=== PATIENT | female | born 1975 | race Caucasian/White ===

== ENCOUNTER → 2017-08-31 11:22 | Outpatient (CLI) | payer OTHER, MEDICAID, SELFPAY ==
[2017-08-31 12:18] LABS: Add Manual Diff / Slide Review NO; Basophils Percent Auto 0.8 % (0-2); Eosinophils Percent Auto 1.1 % (2-4); Hematocrit 42.1 % (36-46); Hemoglobin 14.3 g/dL (12.0-16.0); Mean Corpuscular HGB Conc 33.9 % (30-36); Mean Corpuscular Hemoglobin 31.8 PG (26-34); Mean Corpuscular Volume 93.8 fL (80-100); Monocytes Percent Auto 7.5 % (3-14); Neutrophils Absolute Auto 3900 /uL (3000-5900); Neutrophils Percent Auto 63.6 % (50-75); Platelet Count 227 X10^3/uL (150-400); Red Blood Cell Count 4.49 X10^6/uL (4.0-5.2); White Blood Cell Count 6.1 X10^3/uL (4.5-11.0)
[2017-08-31 12:56] LABS: Alanine Aminotransferase 22 IU/L (9-52); Albumin 4.6 g/dL (3.5-5.0); Albumin Globulin Ratio 1.4 (1.0-2.8); Alkaline Phosphatase 45 U/L (38-126); Aspartate Aminotransferase 23 IU/L (14-36); Bilirubin Total 1.8 mg/dL (0.2-1.3); Estimated Glomerular Filt Rate > 60.0 mL/min (>60); Globulin 3.2 g/dL (1.7-4.1); Glucose 96 mg/dL (70-100); HEMOLYSIS < 15 (0-50); Potassium 4.7 mmol/L (3.4-5.1); Sodium 140 mmol/L (137-145); Total Protein 7.8 g/dL (6.3-8.2)
[2017-08-31 13:25] LABS: TSH w/ Reflex to FT4 2.32 uIU/mL (0.47-4.68)
[2017-08-31 13:40] LABS: Vitamin B12 686 pg/mL (239-931)
== END ==
PROVIDERS: PCP Family Medicine; Visit Provider Family Medicine
DX: Z78.9 Other specified health status (principal); E03.9 Hypothyroidism, unspecified
CPT/HCPCS: 36415; 80053; 82607; 84443; 85025

== ENCOUNTER 2019-03-02 11:31 | Day surgery (SDC) | payer OTHER, MEDICAID, SELFPAY ==
[2019-02-23 12:43] VITALS: BMI 24.4
[2019-03-02] VITALS (11 sets, daily range): BP systolic 94–120; BP diastolic 57–81; PULSE 57–96; RESP 11–18; TEMP 36.5–37.4; O2SAT 98–100; BMI 24.4
--- NOTE | 2019-03-02 | PATH_ITS ---
[facility] Accession Number: [id number] . 01 Material submitted: . fallopian tube - BILATERAL FALLOPIAN TUBES AND RIGHT OVARIAN CYST . 02 Diagnosis: Bilateral Fallopian Tubes and Right Ovarian Cyst, Bilateral Salpingectomy and Cystectomy of the Right Ovary: Fallopian tube #1 with benign paratubal cysts; negative for atypia or malignancy. Fallopian tube #2 with benign paratubal cysts; negative for atypia or malignancy. Ovary with multiple, benign follicular cysts (1-7 mm in greatest dimension); negative for atypia or malignancy. [facility] 03/06/2019 1123 Local . 02 Electronically signed: . Rosa Maria Appiah MD, Pathologist NPI- [id number] . 01 Gross description: . Received in formalin, labeled bilateral fallopian tubes and a sliced ovary, are two fimbriated fallopian tubes (tube #1: length-4.5 cm, diameter-up to 0.5 cm; tube #2: length-2.8 cm, diameter-up to 0.7 cm) and an opened ovary (2.2 x 1.7 x 1.1 cm). The fallopian tubes have ferrara smooth shiny serosa with multiple paratubal cysts (0.1 cm-1.1 cm) containing clear colorless fluid. The lumens are ferrara and unremarkable. The cyst has ferrara-yellow, smooth, shiny, flat serosa and ferrara-yellow, solid, cystic parenchyma with corpus luteum identified. The cavities (0.1 cm-0.7 cm) contain clear colorless fluid. Section code: (A1) fallopian tube #1, insurance representative serial sections; (A2-A3) fimbria #1, bivalved, entirely submitted; (A4) fallopian tube #2, serially sectioned; (A5-A6) fimbria #2, bivalved; (A7, A8) ovary, insurance representative serial sections. Note: Fallopian tube #2 is entirely submitted. ([id number]) /MRV 03/03/2019 1357 Local . 02 Pathologist provided ICD-10: N83.209 . 02 CPT . 777218 Performed at: 01 [facility] [address] [place] [address], [place], [place] [id number] MD Robb Ahumada MD Phone: [phone] Performed at: [address] [facility] [id number] [place], [place] [id number] MD Linsey Bright MD Phone: [phone]
[2019-03-02] MEDS: LACTATED RINGERS 1,000 ML 100 ML IV (11:47)
--- NOTE | 2019-03-02 12:45 | PM.PREOP ---
Pre-operative Note Interval Note History & Physical reviewed/Exam performed by Physician: Yes Changes to H&P: No
[2019-03-02] MEDS: MIDAZOLAM 2 MG/2 ML VIAL IV (13:02)
[2019-03-02] MEDS: APREPITANT 40 MG CAPSULE PO (13:02)
[2019-03-02] MEDS: BUPIVACAINE 0.5% W/ EPI (PF) VIAL 30 ML INJ (13:18)
--- NOTE | 2019-03-02 13:25 | SUR.OPER ---
Lithotomy on padded OR bed, head on pillow, arms gel wrapped and tucked at sides. Legs secured in padded yellow fins stirrups.
[2019-03-02] MEDS: LORazepam 2 MG/ML INJ 0.25 MG IV (14:07)
[2019-03-02] MEDS: fentaNYL 100 MCG/2 ML INJ IV ×2 (14:18→14:32)
[2019-03-02] MEDS: OXYCODONE/ACETAMINOPHEN 5/325 TABLET 1 TAB PO ×2 (14:46→15:40)
--- NOTE | 2019-03-06 06:51 | PM.GYNOP.1 ---
Operative Date/Time/Diagnoses Date of procedure: 03/02/19 Time of procedure: 13:45 Pre-op diagnosis: Right ovarian cyst Post-op diagnosis: same Procedure & Clinicians Procedure: Procedures Operation Date: 03/02/19 12:45 Actual Procedures Side Surgeon p Laparoscopic removal of right ovarian cyst, salpingectomy bilateral, cauterization of cervical canal Bilateral Kira Blanton MD Indications: Right ovarian cyst Surgeon: Kira Blanton Anesthesia Type: General Operative Notes Findings: 3 cm right ovarian cyst Uterus previously removed Normal tubes Normal gallbladder, liver, and appendix Closure Type: primary Specimen(s): left tube, right tube and other (Right ovarian cyst) Estimated blood loss (mL): 5 Blood products transfused: none Procedure in detail: After informed consent was obtained, the patient was taken the operating room where she was placed in the dorsal supine position. After adequate general endotracheal anesthesia was achieved, she was placed in the dorsal lithotomy position, and prepped and draped in the usual sterile fashion. A time-out was performed. A moistened sponge stick was placed into the vagina. Attention was then turned to the abdomen where 6 cc of 0.5% Marcaine with epinephrine were injected in the umbilical fold. A 5 mm incision was made. The Veress needle was placed into the peritoneal cavity, and its placement confirmed by aspiration and drop test. The abdominal cavity was insufflated with 3.2 L of CO2. The Veress needle was removed, and a 5 mm trocar was placed without difficulty. A 2nd incision was made midway between the pubic symphysis and umbilicus, 4 cm lateral to the midline, after 6 cc of 0.5% Marcaine with epinephrine were injected. A 2nd 5 mm trocar was placed under direct visualization. A 3rd incision was made just above the pubic symphysis after 6 cc of 0.5% Marcaine with epinephrine were injected. A 3rd 5 mm trocar was placed under direct visualization. The right utero-ovarian ligament was grasped with an atraumatic grasper. Using the PlasmaKinetic was settings at 40 w, the cyst was excised with cautery and cut. The edges of the ovary were cauterized for hemostasis. The cyst was removed through the suprapubic trocar. The remainder of the pelvis was normal. The uterus had previously been removed. The liver, gallbladder, and appendix were normal. The left ovary was normal. The left tube was grasped with an atraumatic grasper. The mesosalpinx was cauterized and cut. The tube was removed through the suprapubic trocar. This was repeated on the patient's right tube. The pelvis was inspected and was found to be hemostatic. The instruments were removed from the abdomen. The CO2 was allowed to escape. The incisions were repaired with 4-0 Biosyn in a subcuticular fashion. Steri-Strips, 2 x 2, and op site were placed. The moistened sponge stick was removed from the vagina. Sponge, lap, and instrument counts were correct x2. The patient tolerated the procedure well, and was taken to PACU in stable condition. Complications: none Post-operative Condition: stable Disposition: PACU Plan for aftercare: Home after recovery
== END 2019-03-02 16:20 | disposition home or self-care (01) ==
PROVIDERS: PCP Family Medicine; Visit Provider Obstetrics & Gynecology
PROC: 0UB24ZZ Excision of Bilateral Ovaries, Percutaneous Endoscopic Approach (ICD-10-PCS; CPT 58662; principal; 2019-03-02 12:45)
DX: N83.01 Follicular cyst of right ovary (principal); N83.8 Other noninflammatory disorders of ovary, fallopian tube and broad ligament; F41.9 Anxiety disorder, unspecified; E03.9 Hypothyroidism, unspecified; E80.4 Gilbert syndrome; F32.9 Major depressive disorder, single episode, unspecified
CPT/HCPCS: 58662; 58661; J1100; J1885; J2060; J2250; J2405; J2704; J3010; J8501

== ENCOUNTER → 2019-11-10 14:24 | Outpatient (CLI) | payer OTHER, MEDICAID, SELFPAY ==
--- NOTE | 2019-11-10 14:27 | DI.MG.S_ITS ---
BILATERAL DIGITAL SCREENING MAMMOGRAM 3D/2D WITH CAD: 11/10/2019 CLINICAL: Routine screening. Comparison is made to exam dated: 07/21/2016 mammogram - [facility]gen. The tissue of both breasts is heterogeneously dense. This may lower the sensitivity of mammography. Current study was also evaluated with a Computer Aided Detection (CAD) system. No significant masses, calcifications, or other findings are seen in either breast. There has been no significant interval change. IMPRESSION: NEGATIVE There is no mammographic evidence of malignancy. A 1 year screening mammogram is recommended. This exam was interpreted at Station ID: [id number]. NOTE: For mammograms, a report in lay terms will be sent to the patient. Approximately 15% of breast malignancies will not be visualized mammographically. In the management of a palpable breast mass, a negative mammogram must not discourage biopsy of a clinically suspicious lesion. Electronically Signed By: Robb benítez/honey:11/10/2019 16:27:12 letter sent: Normal Exam ACR BI-RADS Category 1: Negative [id number]
== END ==
PROVIDERS: PCP Family Medicine; Referring Provider Obstetrics & Gynecology; Visit Provider Obstetrics & Gynecology
DX: Z12.31 Encounter for screening mammogram for malignant neoplasm of breast (principal)
CPT/HCPCS: 77063; 77067

== ENCOUNTER → 2019-12-13 13:26 | Outpatient (CLI) | payer OTHER, MEDICAID, SELFPAY ==
[2019-12-14 11:39] LABS: COVID19 Sendout Not Detected (Not Detect)
== END ==
PROVIDERS: PCP Family Medicine; Visit Provider Physician Assistant
DX: Z11.59 Encounter for screening for other viral diseases (principal)
CPT/HCPCS: 87635